=== PATIENT | male | born 1950 | race Caucasian/White ===

== ENCOUNTER → 2017-12-22 12:05 | Outpatient (CLI) | payer MEDICARE, OTHER, SELFPAY ==
[2017-12-22 15:57] LABS: ALB/GLOB Ratio 1.1 RATIO (0.9-2.4); AST(SGOT) 30 U/L (15-37); Alanine Aminotransfer ALT/SGPT 47 U/L (16-61); Albumin, Serum 4.1 g/dL (3.2-5.0); Alkaline Phosphatase 61 U/L (45-117); Anion Gap 9 (5-15); BUN 19 mg/dL (7-18); BUN/Creat Ratio 16.7 RATIO (10-20); Calcium,Total 9.7 mg/dL (8.5-10.1); Chloride 106 mmol/L (98-107); Creatinine, Serum 1.14 mg/dL (0.70-1.30); EST Glomerular Filtration Rate 69 mL/min (>60); Est Glom Filt Rate - Afr Amer 83 mL/min (>60); Globulin 3.7 g/dL (2.2-4.2); Glucose 116 mg/dL (74-106); Protein, Total 7.8 g/dL (6.4-8.2); Sodium Level 142 mmol/L (136-145); T4 Free Direct 1.08 ng/dL (0.76-1.46)
[2017-12-22 16:10] LABS: Microalbumin:Creatinine Ratio 14.5 mg/g CRE (<30 mg/g CRE)
== END ==
PROVIDERS: Family Provider Family Medicine; PCP Family Medicine; Visit Provider Family Medicine
DX: I10 Essential (primary) hypertension (principal); E11.9 Type 2 diabetes mellitus without complications; R05 Cough; E03.2 Hypothyroidism due to medicaments and other exogenous substances; Z51.81 Encounter for therapeutic drug level monitoring
CPT/HCPCS: 36415; 71046; 80053; 82043; 82570; 84439; 84443

== ENCOUNTER → 2018-05-01 13:07 | Outpatient (CLI) | payer MEDICARE, OTHER, SELFPAY ==
[2018-05-01 15:51] LABS: T3 Total - Triiodothyronine 0.82 ng/mL (0.6-1.81)
[2018-05-01 15:54] LABS: ALB/GLOB Ratio 1.1 RATIO (0.9-2.4); AST(SGOT) 35 U/L (15-37); Alanine Aminotransfer ALT/SGPT 72 U/L (16-61); Albumin, Serum 3.8 g/dL (3.2-5.0); Alkaline Phosphatase 66 U/L (45-117); Anion Gap 8 (5-15); BUN 14 mg/dL (7-18); BUN/Creat Ratio 14.3 RATIO (10-20); Calcium,Total 9.6 mg/dL (8.5-10.1); Chloride 104 mmol/L (98-107); Creatinine, Serum 0.98 mg/dL (0.70-1.30); EST Glomerular Filtration Rate 82 mL/min (>60); Est Glom Filt Rate - Afr Amer 99 mL/min (>60); Globulin 3.6 g/dL (2.2-4.2); Glucose 180 mg/dL (74-106); Potassium 4.2 mmol/L (3.5-5.1); Protein, Total 7.4 g/dL (6.4-8.2); Sodium Level 140 mmol/L (136-145); T4 Free Direct 1.02 ng/dL (0.76-1.46)
[2018-05-01 17:01] LABS: Absolute Lymphocyte Count 2.21 X10^3/ul (0.83-4.51); Absolute Neutrophil Count 5.4 X10^3/uL (2.0-7.7); Basophil# 0.09 X10^3/uL; Eosinophil# 0.21 X10^3/uL; Eosinophils% 2.3 % (0-5); Hematocrit 46.1 % (40-54); Hemoglobin 15.1 g/dl (13.0-16.5); Immature Platelet Fraction 9.4 % (1.0-7.9); Lymphocyte # 2.21 X10^3/ul (4.0); Lymphocyte % 24.3 % (19-41); Mean Corp Hgb Conc 32.8 g/gl (32-36); Mean Corpuscular Hgb 28.5 pg (27.0-32.0); Mean Platelet Vol. 13.2 fl (6.2-12.0); Monocyte# 1.17 X10^3/uL; Monocyte% 12.9 % (0-10); Neutrophil # 5.38 X10^3/uL (2.7-7.7); Neutrophil % 59.1 % (47-70); POSITIVE COUNT NO; POSITIVE DIFFERENTIAL NO; POSITIVE MORPHOLOGY NO; Platelet Count 188 K/mm3 (150-450); RBC Distribution Width CV 13.9 % (11.6-14.6); RBC Distribution Width SD 43.7 fl (35.1-43.9); RET-HE 30.5 pg (30-35); Reticulocyte Count 1.48 % (0.5-1.5); White Blood Count 9.1 K/mm3 (4.4-11.0)
== END ==
PROVIDERS: Family Provider Family Medicine; PCP Family Medicine; Visit Provider Family Medicine
DX: K92.1 Melena (principal); D64.9 Anemia, unspecified; E03.2 Hypothyroidism due to medicaments and other exogenous substances; K57.92 Diverticulitis of intestine, part unspecified, without perforation or abscess without bleeding
CPT/HCPCS: 36415; 80053; 84439; 84443; 84480; 85025; 85045

== ENCOUNTER → 2018-12-06 | Outpatient (CLI) | payer MEDICARE, OTHER, SELFPAY ==
[2018-05-02 10:35] VITALS: BMI 26.7
[2018-12-06 18:04] LABS: Free T3 2.6 pg/mL (2.18-3.98); T4 Free Direct 0.97 ng/dL (0.76-1.46)
== END | disposition home or self-care (01) ==
LOC: BFHLAB 16:34
PROVIDERS: Family Provider Family Medicine; PCP Family Medicine; Visit Provider Family Medicine
DX: E03.2 Hypothyroidism due to medicaments and other exogenous substances (principal)
CPT/HCPCS: 36415; 84439; 84443; 84481

== ENCOUNTER → 2019-04-10 08:11 | Outpatient (CLI) | payer MEDICARE, OTHER, SELFPAY ==
[2018-05-02 10:35] VITALS: BMI 26.7
[2019-04-10 15:14] LABS: Absolute Lymphocyte Count 1.97 X10^3/uL (0.83-4.51); Absolute Neutrophil Count 3.9 X10^3/uL (2.0-7.7); Basophil% 1.4 % (0-1); Eosinophil# 0.15 X10^3/uL; Eosinophils% 2.2 % (0-5); Hematocrit 49.6 % (40-54); Hemoglobin 15.9 g/dL (13.0-16.5); Lymphocyte # 1.97 X10^3/ul (4.0); Lymphocyte % 28.3 % (19-41); Mean Corp Hgb Conc 32.1 g/dL (32-36); Mean Corpuscular Hgb 28.5 pg (27.0-32.0); Mean Platelet Vol. 12.7 fl (6.2-12.0); Monocyte% 11.5 % (0-10); NRBC Flagged by Analyzer 0 % (0-5); Platelet Count 157 K/mm3 (150-450); RBC Distribution Width CV 12.8 % (11.6-14.6); RBC Distribution Width SD 41.7 fl (35.1-43.9); Red Blood Count 5.57 M/mm3 (4.6-6.2)
[2019-04-10 15:35] LABS: ALB/GLOB Ratio 1.1 RATIO (0.9-2.4); AST(SGOT) 26 U/L (15-37); Alanine Aminotransfer ALT/SGPT 60 U/L (16-61); Albumin, Serum 3.9 g/dL (3.2-5.0); Alkaline Phosphatase 58 U/L (45-117); Anion Gap 4 (5-15); BUN 16 mg/dL (7-18); Calcium,Total 9.5 mg/dL (8.5-10.1); Chloride 107 mmol/L (98-107); Cholesterol 149 mg/dL (200); Creatinine, Serum 1.07 mg/dL (0.70-1.30); EST Glomerular Filtration Rate 73 mL/min (>60); Est Glom Filt Rate - Afr Amer 89 mL/min (>60); Globulin 3.6 g/dL (2.2-4.2); Glucose 130 mg/dL (74-106); High Density Lipoprotein 41 mg/dL; Potassium 4.1 mmol/L (3.5-5.1); Protein, Total 7.5 g/dL (6.4-8.2); Sodium Level 139 mmol/L (136-145); Triglycerides 240 mg/dL; Very Low Density Lipoprotein 48 mg/dL (5-40)
[2019-04-10 16:52] LABS: Hemoglobin A1c 7.6 % (4.2-6.3)
== END ==
PROVIDERS: Family Provider Family Medicine; PCP Family Medicine; Visit Provider Family Medicine
DX: E78.5 Hyperlipidemia, unspecified (principal); E11.65 Type 2 diabetes mellitus with hyperglycemia; Z51.81 Encounter for therapeutic drug level monitoring
CPT/HCPCS: 36415; 80053; 80061; 83036; 85025

== ENCOUNTER → 2019-08-15 07:58 | Outpatient (CLI) | payer MEDICARE, OTHER, SELFPAY ==
[2019-05-01 07:39] VITALS: BMI 27.5
[2019-08-15 10:19] LABS: Insulin 17.2 mU/L (2.6-37.6)
[2019-08-15 10:34] LABS: Hemoglobin A1c 7.5 % (4.2-6.3)
[2019-08-15 11:01] LABS: BUN 16 mg/dL (7-18); Creatinine, Serum 0.99 mg/dL (0.70-1.30); Glucose 132 mg/dL (74-106)
[2019-08-15 11:02] LABS: AST(SGOT) 23 U/L (15-37); Alanine Aminotransfer ALT/SGPT 46 U/L (16-61); Alkaline Phosphatase 66 U/L (45-117); Anion Gap 7 (5-15); BUN/Creat Ratio 16.2 RATIO (10-20); Calcium,Total 9.9 mg/dL (8.5-10.1); Chloride 107 mmol/L (98-107); EST Glomerular Filtration Rate 81 mL/min (>60); Est Glom Filt Rate - Afr Amer 97 mL/min (>60); Sodium Level 141 mmol/L (136-145); Thyroid Stim Hormone (TSH) 0.44 uIU/mL (0.358-3.74)
[2019-08-17 01:22] LABS: C-Peptide 4.1 ng/mL (1.1-4.4)
== END ==
PROVIDERS: PCP Family Medicine; Referring Provider Family Medicine; Visit Provider Family Medicine
DX: I10 Essential (primary) hypertension (principal); E11.65 Type 2 diabetes mellitus with hyperglycemia; E03.9 Hypothyroidism, unspecified
CPT/HCPCS: 36415; 80053; 83036; 83525; 84443; 84681

== ENCOUNTER → 2020-05-01 09:56 | Outpatient (CLI) | payer MEDICARE, OTHER, SELFPAY ==
[2020-05-01 07:57] VITALS: BMI 28.1
[2020-05-01 13:14] LABS: AST(SGOT) 60 U/L (15-37); Alanine Aminotransfer ALT/SGPT 62 U/L (16-61); Albumin, Serum 3.8 g/dL (3.2-5.0); Alkaline Phosphatase 79 U/L (45-117); Bilirubin, Direct 0.14 mg/dL (0.00-0.30); Cholesterol 162 mg/dL (200); Globulin 4.1 g/dL (2.2-4.2); High Density Lipoprotein 38 mg/dL; Protein, Total 7.9 g/dL (6.4-8.2); Triglycerides 759 mg/dL
== END ==
PROVIDERS: PCP Family Medicine; Referring Provider Internal Medicine Cardiovascular Disease; Visit Provider Internal Medicine Cardiovascular Disease
DX: E78.00 Pure hypercholesterolemia, unspecified (principal)
CPT/HCPCS: 36415; 80061; 80076

== ENCOUNTER → 2020-05-15 06:44 | Outpatient (CLI) | payer MEDICARE, OTHER, SELFPAY ==
[2020-05-01 07:57] VITALS: BMI 28.1
--- NOTE | 2020-05-15 09:10 | STRESSREP ---
Stress Test Report Exercise myocardial perfusion stress test. 69-year-old man with a history of chest pain. Stress protocol: Resting EKG demonstrates sinus bradycardia with a rate of 50 bpm. Resting blood pressure is 140/80 mmHg. The patient exercised according to the regular Duong protocol for a total duration of 9 minutes and 30 seconds. The maximum heart rate was 142 bpm which was 92% of max impacted heart rate the maximum workload was 10.9 metabolic equivalents. At rest there were no ST or T wave changes noted to suggest ischemia at peak exercise upsloping ST changes only were noted with no criteria for ischemia. No clinical angina was noted the test was terminated due to shortness of breath. Myocardial perfusion protocol. 11.8 mCi of technetium 99m sestamibi was injected at rest. The patient exercised according to regular Duong protocol for 9 minutes and 30 seconds and at peak exercise 31.0 mCi of technetium 99m sestamibi was injected stress images were obtained stress and rest images were reconstructed and compared in the short axis vertical long horizontal long axis. Gated images were also obtained Perfusion SPECT analysis: Review of the stress images demonstrate normal uptake of tracer noted in all areas of the myocardium the rest images similar demonstrate normal uptake of tracer noted in all areas of myocardium. No areas of reversibility are noted suggest ischemia no previous infarct is noted. Gated SPECT analysis: The gated ejection fraction is 62%. Conclusion: Normal exercise myocardial perfusion stress test at a high workload. Preserved ejection fraction.
== END ==
PROVIDERS: PCP Family Medicine; Referring Provider Internal Medicine Cardiovascular Disease; Visit Provider Internal Medicine Cardiovascular Disease
DX: I25.10 Atherosclerotic heart disease of native coronary artery without angina pectoris (principal); Z95.5 Presence of coronary angioplasty implant and graft
CPT/HCPCS: 78452; 93017; A9500; A4216

== ENCOUNTER → 2020-07-17 09:23 | Outpatient (CLI) | payer MEDICARE, OTHER, SELFPAY ==
[2020-05-01 07:57] VITALS: BMI 28.1
--- NOTE | 2020-07-17 09:26 | RAD_ITS ---
STUDY: X-RAY CHEST REASON FOR EXAM: Male, 69 years old. cough TECHNIQUE: PA and lateral views of the chest. COMPARISON: 12/22/2017 FINDINGS: The lungs are clear and expanded. There is no demonstrated pleural abnormality. Normal size heart. Normal mediastinum and lindsey. Normal visualized pulmonary arteries. Normal visualized aortic arch and descending thoracic aorta. Normal visualized thoracic spine. Normal visualized ribs, clavicles, and shoulders. There is no demonstrated abnormality of the visualized soft tissue structures of the upper abdomen. RAD/Chest PA and Lateral IMPRESSION: Normal x-ray examination of the chest. Electronically Signed: Jonathon Barrientos MD at 17:06 EDT Tel , Service support ,
[2020-07-17 10:23] LABS: Absolute Lymphocyte Count 1.58 X10^3/uL (0.83-4.51); Absolute Neutrophil Count 4.9 X10^3/uL (2.0-7.7); Basophil# 0.08 X10^3/uL; Basophil% 1.1 % (0-1); Eosinophil# 0.18 X10^3/uL; Eosinophils% 2.4 % (0-5); Hemoglobin 16.2 g/dL (13.0-16.5); Lymphocyte # 1.58 X10^3/ul (4.0); Lymphocyte % 20.8 % (19-41); Mean Corp Hgb Conc 31.8 g/dL (32-36); Mean Corpuscular Hgb 28.1 pg (27.0-32.0); Mean Corpuscular Volume 88.5 fL (80-94); Mean Platelet Vol. 12.8 fl (6.2-12.0); Monocyte# 0.83 X10^3/uL; Monocyte% 10.9 % (0-10); NRBC Flagged by Analyzer 0 % (0-5); Neutrophil # 4.88 X10^3/uL (2.7-7.7); Neutrophil % 64.4 % (47-70); Platelet Count 158 K/mm3 (150-450); RBC Distribution Width CV 13.2 % (11.6-14.6); RBC Distribution Width SD 42.5 fl (35.1-43.9); Red Blood Count 5.76 M/mm3 (4.6-6.2); White Blood Count 7.6 K/mm3 (4.4-11.0)
[2020-07-17 11:10] LABS: AST(SGOT) 21 U/L (15-37); Alanine Aminotransfer ALT/SGPT 38 U/L (16-61); Albumin, Serum 4.3 g/dL (3.2-5.0); Alkaline Phosphatase 62 U/L (45-117); Anion Gap 6 (5-15); BUN 20 mg/dL (7-18); BUN/Creat Ratio 18.9 RATIO (10-20); Calcium,Total 10.1 mg/dL (8.5-10.1); Chloride 105 mmol/L (98-107); Cholesterol 165 mg/dL (200); Creatinine, Serum 1.06 mg/dL (0.70-1.30); EST Glomerular Filtration Rate 74 mL/min (>60); Est Glom Filt Rate - Afr Amer 89 mL/min (>60); Free T3 2.5 pg/mL (2.18-3.98); Globulin 4.1 g/dL (2.2-4.2); Glucose 134 mg/dL (74-106); High Density Lipoprotein 44 mg/dL; Protein, Total 8.4 g/dL (6.4-8.2); Sodium Level 137 mmol/L (136-145); T4 Free Direct 1.29 ng/dL (0.76-1.46); Thyroid Stim Hormone (TSH) 0.54 uIU/mL (0.358-3.74); Triglycerides 247 mg/dL; Very Low Density Lipoprotein 49 mg/dL (5-40)
[2020-07-18 20:33] LABS: C-Peptide 3.1 ng/mL (1.1-4.4)
== END ==
PROVIDERS: PCP Family Medicine; Referring Provider Family Medicine; Visit Provider Family Medicine
DX: R05 Cough (principal); E03.9 Hypothyroidism, unspecified; E11.65 Type 2 diabetes mellitus with hyperglycemia; E78.5 Hyperlipidemia, unspecified; Z51.81 Encounter for therapeutic drug level monitoring
CPT/HCPCS: 36415; 71046; 80053; 80061; 82043; 82570; 83525; 84439; 84443; 84481; 84681; 85025

== ENCOUNTER → 2022-03-16 | Outpatient (CLI) | payer MEDICARE, OTHER, SELFPAY ==
[2022-03-16 12:14] LABS: Absolute Lymphocyte Count 2.15 X10^3/uL (0.83-4.51); Absolute Neutrophil Count 3.3 X10^3/uL (2.0-7.7); Basophil# 0.08 X10^3/uL; Basophil% 1.2 % (0-1); Eosinophil# 0.17 X10^3/uL; Eosinophils% 2.6 % (0-5); Hematocrit 46.9 % (40-54); Hemoglobin 15.2 g/dL (13.0-16.5); Lymphocyte # 2.15 X10^3/ul (0.83-4.51); Mean Corp Hgb Conc 32.4 g/dL (32-36); Mean Corpuscular Hgb 28.3 pg (27.0-32.0); Mean Corpuscular Volume 87.3 fL (80-94); Mean Platelet Vol. 13.2 fl (6.2-12.0); Monocyte# 0.77 X10^3/uL; Monocyte% 11.8 % (0-10); NRBC Flagged by Analyzer 0 % (0-5); Neutrophil # 3.32 X10^3/uL (2.7-7.7); Neutrophil % 50.9 % (47-70); Platelet Count 143 K/mm3 (150-450); RBC Distribution Width CV 13.2 % (11.6-14.6); RBC Distribution Width SD 41.9 fl (35.1-43.9); Red Blood Count 5.37 M/mm3 (4.6-6.2); White Blood Count 6.5 K/mm3 (4.4-11.0)
[2022-03-16 12:44] LABS: AST(SGOT) 19 U/L (15-37); Alanine Aminotransfer ALT/SGPT 42 U/L (16-61); Albumin, Serum 3.7 g/dL (3.2-5.0); Alkaline Phosphatase 54 U/L (45-117); Anion Gap 5 (5-15); BUN 16 mg/dL (7-18); BUN/Creat Ratio 14.5 RATIO (10-20); Calcium,Total 9.7 mg/dL (8.5-10.1); Chloride 107 mmol/L (98-107); Cholesterol 154 mg/dL (200); EST Glomerular Filtration Rate 71 mL/min (>60); Est Glom Filt Rate - Afr Amer 85 mL/min (>60); Free T3 2.1 pg/mL (2.18-3.98); Globulin 3.6 g/dL (2.2-4.2); Glucose 160 mg/dL (74-106); High Density Lipoprotein 40 mg/dL; PSA,Total - Annual Screen 0.31 ng/mL (0.00-4.00); Potassium 4.2 mmol/L (3.5-5.1); Protein, Total 7.3 g/dL (6.4-8.2); Sodium Level 141 mmol/L (136-145); T4 Free Direct 0.85 ng/dL (0.76-1.46); Thyroid Stim Hormone (TSH) 0.59 uIU/mL (0.358-3.74); Triglycerides 294 mg/dL; Very Low Density Lipoprotein 59 mg/dL (5-40)
[2022-03-16 13:09] LABS: Hemoglobin A1c 9.6 % (3.8-5.6)
[2022-03-16 14:36] LABS: Microalbumin,Random Urine 48.9 mg/L (NO RANGE EST.); Microalbumin:Creatinine Ratio 42.5 mg/g CRE (<30 mg/g CRE)
== END | disposition home or self-care (01) ==
LOC: BFHLAB 08:31
PROVIDERS: PCP Family Medicine; Visit Provider Family Medicine
DX: E03.9 Hypothyroidism, unspecified (principal); E11.9 Type 2 diabetes mellitus without complications; E78.5 Hyperlipidemia, unspecified; Z51.81 Encounter for therapeutic drug level monitoring; Z12.5 Encounter for screening for malignant neoplasm of prostate
CPT/HCPCS: 36415; 80053; 80061; 82043; 82570; 83036; 84153; 84439; 84443; 84481; 85025; G0103

== ENCOUNTER → 2023-02-17 | Outpatient (CLI) | payer MEDICARE, OTHER, SELFPAY ==
[2023-02-17 13:07] LABS: Microalbumin,Random Urine 67.2 mg/L (NO RANGE EST.); Microalbumin:Creatinine Ratio 47.3 mg/g CRE (<30 mg/g CRE)
[2023-02-17 13:10] LABS: AST(SGOT) 29 U/L (15-37); Alanine Aminotransfer ALT/SGPT 59 U/L (16-61); Albumin, Serum 3.6 g/dL (3.2-5.0); Alkaline Phosphatase 61 U/L (45-117); Anion Gap 6 (5-15); BUN 13 mg/dL (7-18); BUN/Creat Ratio 12.9 RATIO (10-20); Calcium,Total 9.6 mg/dL (8.5-10.1); Chloride 107 mmol/L (98-107); Cholesterol 130 mg/dL (200); Creatinine, Serum 1.01 mg/dL (0.70-1.30); EST Glomerular Filtration Rate 78 mL/min (>60); Est Glom Filt Rate - Afr Amer 94 mL/min (>60); Free T3 2.7 pg/mL (2.18-3.98); Globulin 3.7 g/dL (2.2-4.2); Glucose 123 mg/dL (74-106); High Density Lipoprotein 42 mg/dL; PSA,Total - Annual Screen 0.39 ng/mL (0.00-4.00); Potassium 4.1 mmol/L (3.5-5.1); Protein, Total 7.3 g/dL (6.4-8.2); Sodium Level 140 mmol/L (136-145); T4 Free Direct 1.16 ng/dL (0.76-1.46); Thyroid Stim Hormone (TSH) 0.23 uIU/mL (0.358-3.74); Triglycerides 241 mg/dL; Very Low Density Lipoprotein 48 mg/dL (5-40)
== END | disposition home or self-care (01) ==
LOC: BFHLAB 09:18
PROVIDERS: PCP Family Medicine; Referring Provider Family Medicine; Visit Provider Family Medicine
DX: E03.9 Hypothyroidism, unspecified (principal); E11.9 Type 2 diabetes mellitus without complications; E78.5 Hyperlipidemia, unspecified; I25.10 Atherosclerotic heart disease of native coronary artery without angina pectoris; Z12.5 Encounter for screening for malignant neoplasm of prostate
CPT/HCPCS: 36415; 80053; 80061; 82043; 82570; 84153; 84439; 84443; 84481; G0103

== ENCOUNTER → 2023-05-19 | Outpatient (CLI) | payer MEDICARE, OTHER, SELFPAY ==
--- OUTSIDE RECORDS SUMMARY | 2023-05-19 09:41 | XMS RPT_ITS | CCD ---
Author Name Unknown Address [address] [place] [address] Organization [facility] Care Team Providers Care Global Marketing Specialist Name Role Phone Erick Ron Unavailable Unavailable MD Shantanu, Tavares Bowles Unavailable Luis LAINEZ, Corrine Guillaume Unavailable [phone] NING Mcadams, Corrine Walters Unavailable Erick Ron Unavailable Unavailable CINDI, MARCO ANTONIO Unavailable Unavailable MALYS, TERI A. Unavailable Unavailable ELIUD COY (PA) Attending Unavailable TERI CARCAMO A Referring Unavailable DILIP, DURGA T Admitting Unavailable DILIP, DURGA Mendoza Attending Unavailable ELIUD COY (PA) Referring Unavailable DILIP, DURGA Reji Attending Unavailable TERI CARCAMO A Referring Unavailable DILIP, DURGA T Referring Unavailable DILIP, DURGA T Referring Unavailable DILIP, DURGA T Referring Unavailable DILIP, DURGA T Admitting Unavailable DILIP, DURGA Mendoza Attending Unavailable DILIP, DURGA T Referring Unavailable MITCH GORDON Attending Unavail able DILIP, DURGA T Attending Unavailable KEENANYS, TERI A Referring Unavailable Erick Ron Unavailable Unavailable Allergies Allergy Classification Reported Allergen(s) Allergy Type Date of Onset Reaction(s) Facility (19 sources) metFORMIN / SITagliptin drug allergy 09-07-2012 Abdominal pain, None [facility] Work Phone: Medications Completed/Discontinued Medications Medication Drug Class(es) Dates Sig (Normalized) Sig (Original) amoxicillin 500 mg oral tablet (7 sources) Penicillin-class Antibacterial Start: 11-22-2009 End: 12-02-2009 AMOXIL 500 MG CAPS three times a day AMOXICILLIN [id number] Corrina Tolentino CLOTH [employer]AYER Problems Active Problems Problem Classification Problem Date Documented Da te Episodic/Chronic Abdominal pain (16 sources) Right upper quadrant pain; Translations: [Unspecified abdominal pain] Onset: 05-13-2015 Resolved: 09-24-2015 05-13-2015 Episodic Cardiac and circulatory congenital anomalies (1 source) 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; Translations: [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] Onset: 05-30-2018 Chronic Coronary atherosclerosis and other heart disease (20 sources) Coronary arteriosclerosis; Translations: [Coronary atherosclerosis] Onset: 07-02-2010 Resolved: 03-09-2016 07-02-2010 Chronic Diabetes mellitus with complications (20 sources) Type II diabetes mellitus uncontrolled; Translations: [Peripheral circulatory disorder associated with type 2 diabetes mellitus] Onset: 07-02-2010 Resolved: 09-24-2015 09-24-2015 Chronic Diabetes mellitus without complication (20 sources) Type 2 diabetes mellitus; Translations: [Type 2 diabetes mellitus without complications] Onset: 09-24-2015 Resolved: 06-14-2015 09-24-2015 Chronic Disorders of lipid metabolism (7 sources) Hyperlipidemia; Translations: [Hyperlipidemia, unspecified] 11-22-2009 Chronic Essential hypertension (7 sources) Hypertensive disorder; Translations: [Essential (primary) hypertension] 11-22-2009 Chronic Other screening for suspected conditions (not mental disorders or infectious disease) (2 sources) Encounter for screening for other disorder; Translations: [Encounter for screening for malignant neoplasm of colon] Onset: 01-16-2018 Episodic Thyroid disorders (7 sources) Iatrogenic hypothyroidism; Translations: [Hypothyroidism due to medicaments and other exogenous substances] Onset: 07-02-2010 07-02-2010 Chronic Unclassified (1 source) Long-term drug therapy; Translations: [Other mcc (current) drug therapy] Onset: 07-02-2010 07-02-2010 Past or Other Problems Problem Classification Problem Date Documented Da te Episodic/Chronic Cardiac dysrhythmias (14 sources) Palpitations; Translations: [Palpitations] Onset: 07-02-2010 Resolved: 03-09-2016 07-02-2010 Episodic Coronary atherosclerosis and other heart disease (20 sources) Coronary angioplasty status; Translations: [Presence of coronary angioplasty implant and graft] Onset: 07-02-2010 Resolved: 03-09-2016 07-02-2010 Episodic Other aftercare (6 sources) Other roasterman (current) drug therapy; Translations: [Other mcc (current) drug therapy] Onset: 07-02-2010 07-02-2010 Episodic Other nutritional; endocrine; and metabolic disorders (13 sources) Body mass index (BMI) 26.0-26.9, adult; Translations: [Body mass index (BMI) 29.0-29.9, adult] Onset: 09-10-2014 10-29-2015 Episodic Other nutritional; endocrine; and metabolic disorders (1 source) Body mass index (BMI) 29.0-29.9, adult; Translations: [Body mass index (BMI) 29.0-29.9, adult] Onset: 09-10-2014 09-10-2014 Episodic Other upper respiratory infections (7 sources) Upper respiratory infection; Translations: [Acute upper respiratory infection, unspecified] Onset: 11-22-2009 Resolved: 12-13-2009 11-22-2009 Episodic Unclassified (7 sources) Family history of ischemic heart disease and other diseases of the circulatory system; Translations: [Family history of ischemic heart disease and other diseases of the circulatory system] 09-10-2014 Episodic Unclassified (14 sources) Procedure needed; Translations: [Encounter for immunization] Onset: 05-13-2015 Resolved: 09-24-2015 05-13-2015 Results Test Name Value Interpretation Reference Range Facil ity Vital Signs Date Time Vital Sign Value Performing Clinician Rosendo fernandes 03-09-2016 15:35-0500 BMI (Body Mass Index) 26.15 kg/m2 [facility] Work Phone: 03-09-2016 15:35-0500 BP Diastolic 64 mm[Hg] [facility] Work Phone: 03-09-2016 15:35-0500 BP Systolic 100 mm[Hg] [facility] Work Phone: 03-09-2016 15:35-0500 BSA (Body Surface Area) 1.92 m2 [facility] Work Phone: 03-09-2016 15:35-0500 Pulse (Heart Rate) 52 /min [facility] Work Phone: 03-09-2016 15:35-0500 Respiratory Rate 20 /min Harumi DeFinis [facility] Work Phone: 03-09-2016 15:35-0500 Weight 78.02 kg Harumi DeFinis [facility] Work Phone: 09-24-2015 12:54-0400 Body Temperature 97.4 [degF] Harumi DeFinis [facility] Work Phone: 09-24-2015 12:54-0400 Pulse Oximetry 98 % Harumi DeFinis [facility] Work Phone: 12-25-2013 15:23-0400 Heart rate 51 /min Harumi DeFinis [facility] Work Phone: 03-02-2012 16:30-0500 Heart rate 418 ms [facility] [employer] [facility] Work Phone: 08-26-2011 16:26-0400 Height 172.72 cm Harumi DeFinis [facility] Work Phone: Encounters Encounter Date Encounter Type Care Provider Facility Start: 06-01-2018 End: 06-01-2018 Patient encounter procedure DURGA CHERRY [facility] Start: 05-30-2018 End: 05-31-2018 Patient encounter procedure MITCH GORDON [facility] Start: 05-23-2018 End: 05-23-2018 Patient encounter procedure DURGA CHERRY [facility] Start: 05-10-2018 End: 05-17-2018 Patient encounter procedure DURGA CHERRY [facility] Start: 05-05-2018 End: 05-08-2018 Patient encounter procedure DURGA CHERRY [facility] Start: 02-14-2018 End: 02-14-2018 Patient encounter procedure DURGA CHERRY [facility] Start: 01-16-2018 End: 01-17-2018 Patient encounter procedure ELIUD CYO (PA) [facility] Start: 11-14-2017 End: 11-15-2017 Patient encounter [facility] Facility[facility] Date Procedure Procedure Detail Performing Clinician Start: 08-06-2016 End: 10-08-2016 *Hepatic Function Panel Corrine hylton PA-C Work Phone: Start: 08-06-2016 End: 10-08-2016 Lipid panel [AGGREGATE] Corrine hylton PA-C Work Phone: Start: 03-09-2016 End: 03-09-2016 Follow Up Appt 1 year Tavares Fournier MD Start: 03-09-2016 End: 03-09-2016 MM Tavares Fournier MD Start: 01-24-2016 End: 02-09-2016 *Hepatic Function Panel Corrine hylton PA-C Work Phone: Start: 01-24-2016 End: 02-09-2016 Lipid panel [AGGREGATE] Corrine hylton PA-C Work Phone: Start: 10-29-2015 End: 10-29-2015 Dietary management education, guidance, and counseling Erick Ron Start: 10-29-2015 End: 10-29-2015 [employer] Corrine Mcadams PA-C Work Phone: Start: 10-29-2015 End: 10-29-2015 Follow Up Appt 6 months Corrine hylton PA-C Work Phone: Start: 09-24-2015 End: 09-24-2015 HbA1c Suleman Nur DO Work Phone: Start: 09-24-2015 End: 09-24-2015 Hemoglobin glycosylated a1c Suleman Nur DO Work Phone: Start: 05-13-2015 End: 10-14-2015 Echo exam of abdomen Teri Carcamo, DO Work Phone: Start: 05-13-2015 End: 06-14-2015 HbA1c Teri A Dona, DO Work Phone: Start: 05-13-2015 End: 06-14-2015 Hemoglobin glycosylated a1c Teri A Dona, DO Work Phone: Start: 05-06-2015 End: 10-14-2015 Follow Up Appt 6 months Selena Valverde Start: 05-06-2015 End: 10-14-2015 JOHN Fournier MD Start: 04-01-2015 End: 06-09-2015 Thyroid stimulating hormone (TSH) Teridon Carcamo, DO Work Phone: Start: 04-01-2015 End: 06-14-2015 Thyroxine (T4) free Teri Carcamo, DO Work Phone: Start: 01-07-2015 End: 03-31-2015 *CMP Complete Metabolic Panel Teri Carcamo, DO Work Phone: Start: 01-07-2015 End: 04-01-2015 Lipid panel [AGGREGATE] Teri Carcamo, DO Work Phone: Start: 01-07-2015 End: 03-31-2015 Thyroid stimulating hormone (TSH) Teri Carcamo, DO Work Phone: Start: 01-07-2015 End: 03-31-2015 Thyroxine (T4) free Teri Carcamo, DO Work Phone: Start: 09-10-2014 End: 09-10-2014 [employer] Corrine Mcadams PA-C Work Phone: Start: 09-10-2014 End: 09-11-2014 Documentation of current medications Corrine Mcadams PA-C Work Phone: Start: 09-10-2014 End: 09-10-2014 Follow Up Appt 6 months Corrine hylton PA-C Work Phone: Start: 09-10-2014 End: 09-10-2014 Follow Up Appt Other Corrine guillaume PA-C Work Phone: Start: 09-10-2014 End: 09-11-2014 Pedal pulse taking Corrine Mcadams PA-C Work Phone: Start: 03-12-2014 End: 04-02-2014 *Hepatic Function Panel Selena Valverde Start: 03-12-2014 End: 03-12-2014 Follow Up Appt 6 months Selena Valverde Start: 03-12-2014 End: 04-02-2014 Lipid panel [AGGREGATE] Selena Valverde Start: 03-12-2014 End: 03-12-2014 MMSelena Fournier MD Start: 12-25-2013 End: 12-26-2013 *BMP Tavares Fournier MD Start: 12-25-2013 End: 12-26-2013 CBC W Auto Differential panel - Blood Tavares Fournier MD Start: 12-25-2013 End: 01-03-2014 Chest x-ray Tavares Fournier MD Start: 12-25-2013 End: 12-26-2013 Coagulation factor induced.INR assay in platelet poor plasma Tavares Fournier MD Start: 12-25-2013 End: 12-26-2013 Electrocardiogram, complete Tavares Fournier MD Start: 12-25-2013 End: 03-12-2014 Follow Up Appt 3 months Selena Valverde Start: 12-25-2013 End: 01-03-2014 Left Heart Cath Tavares Fournier MD Start: 12-25-2013 End: 12-26-2013 Lipid panel [AGGREGATE] Selena Valverde Start: 12-25-2013 End: 03-12-2014 MMSelena Fournier MD Start: 03-12-2013 End: 03-12-2013 [employer] Corrine Mcadams PA-C Work Phone: Start: 03-12-2013 End: 03-12-2013 Follow Up Appt 1 year Corrine stanley PA-C Work Phone: Start: 03-12-2013 End: 03-12-2013 Follow Up Appt Other Corrine guillaume PA-C Work Phone: Start: 02-23-2013 End: 01-03-2014 *Hepatic Function Panel Selena Valverde Start: 02-23-2013 End: 01-03-2014 Lipid panel [AGGREGATE] Selena Valverde Start: 09-07-2012 End: 03-07-2013 *Hepatic Function Panel Selena Valverde Start: 09-07-2012 End: 09-07-2012 Follow Up Appt 6 months Selena Valverde Start: 09-07-2012 End: 03-07-2013 Lipid panel [AGGREGATE] Selena Valverde Start: 09-07-2012 End: 09-07-2012 MMM Tavares Fournier MD Start: 09-06-2012 End: 03-07-2013 *Hepatic Function Panel Delfino hoff MD Start: 09-06-2012 End: 03-07-2013 Lipid panel [AGGREGATE] Delfino hoff MD Start: 03-02-2012 End: 03-02-2012 Follow Up Appt 6 months Delfino hoff MD Start: 03-01-2012 End: 03-02-2012 *Hepatic Function Panel Delfino hoff MD Start: 03-01-2012 End: 03-02-2012 Lipid panel [AGGREGATE] Delfnio hoff MD Start: 08-26-2011 End: 08-26-2011 Follow Up Appt 6 months Delfino hoff MD Plan of Treatment Date Care Activity Detail Author Start: 03-10-2017 End: 03-10-2017 Appointment Appointment [facility] Work Phone: Start: 01-07-2017 End: 10-08-2016 *Hepatic Function Panel *Hepatic Function Panel [facility] Work Phone: Start: 01-07-2017 End: 10-08-2016 Lipid panel [AGGREGATE] *Lipid Profile CC PCP [facility] Work Phone: Start: 08-06-2016 End: 10-08-2016 *Hepatic Function Panel *Hepatic Function Panel [facility] Work Phone: Start: 08-06-2016 End: 10-08-2016 Lipid panel [AGGREGATE] *Lipid Profile CC PCP [facility] Work Phone: Start: 03-09-2016 End: 03-09-2016 *Hepatic Function Panel *Hepatic Function Panel [facility] Work Phone: Start: 03-09-2016 End: 03-09-2016 Follow Up Appt 1 year Follow Up Appt 1 year [facility] Work Phone: Start: 03-09-2016 End: 03-09-2016 Lipid panel [AGGREGATE] *Lipid Profile CC PCP [facility] Work Phone: Start: 03-09-2016 End: 03-09-2016 MMM MMM [facility] Work Phone: Start: 01-24-2016 End: 02-09-2016 *Hepatic Function Panel *Hepatic Function Panel [facility] Work Phone: Start: 01-24-2016 End: 02-09-2016 Lipid panel [AGGREGATE] *Lipid Profile CC PCP [facility] Work Phone: Start: 10-29-2015 End: 10-29-2015 [employer] [facility] Work Phone: Start: 10-29-2015 End: 10-29-2015 Follow Up Appt 6 months Follow Up Appt 6 months [facility] Work Phone: Start: 05-13-2015 End: 10-14-2015 Echo exam of abdomen US Abdomen, limited [facility] Work Phone: Start: 05-06-2015 End: 10-14-2015 Follow Up Appt 6 months Follow Up Appt 6 months [facility] Work Phone: Start: 05-06-2015 End: 10-14-2015 MMM MMM [facility] Work Phone: Start: 04-01-2015 End: 06-09-2015 Thyroid stimulating hormone (TSH) *TSH [facility] Work Phone: Start: 04-01-2015 End: 06-14-2015 Thyroxine (T4) free *T4 free [facility] Work Phone: Start: 01-07-2015 End: 03-31-2015 *CMP Complete Metabolic Panel *CMP Complete Metabolic Panel [facility] Work Phone: Start: 01-07-2015 End: 04-01-2015 Lipid panel [AGGREGATE] *Lipid Profile [facility] Work Phone: Start: 01-07-2015 End: 03-31-2015 Thyroid stimulating hormone (TSH) *TSH [facility] Work Phone: Start: 09-10-2014 End: 09-10-2014 [employer] SAL[employer] [facility] Work Phone: Start: 09-10-2014 End: 09-10-2014 Follow Up Appt 6 months Follow Up Appt 6 months [facility] Work Phone: Start: 09-10-2014 End: 09-10-2014 Follow Up Appt Other Follow Up Appt Other [facility] Work Phone: Start: 03-12-2014 End: 04-02-2014 *Hepatic Function Panel *Hepatic Function Panel [facility] Work Phone: Start: 03-12-2014 End: 03-12-2014 Follow Up Appt 6 months Follow Up Appt 6 months [facility] Work Phone: Start: 03-12-2014 End: 04-02-2014 Lipid panel [AGGREGATE] *Lipid Profile CC PCP [facility] Work Phone: Start: 03-12-2014 End: 03-12-2014 MMM MMM [facility] Work Phone: Start: 12-25-2013 End: 12-26-2013 *BMP *BMP [facility] Work Phone: Start: 12-25-2013 End: 12-26-2013 CBC W Auto Differential panel - Blood *CBC without Diff [facility] Work Phone: Start: 12-25-2013 End: 01-03-2014 Chest x-ray X-Ray, Chest, PA & Lateral [facility] Work Phone: Start: 12-25-2013 End: 12-26-2013 Coagulation factor induced.INR assay in platelet poor plasma *PT/INR [facility] Work Phone: Start: 12-25-2013 End: 12-26-2013 Electrocardiogram, complete EKG (In office) [facility] Work Phone: Start: 12-25-2013 End: 03-12-2014 Follow Up Appt 3 months Follow Up Appt 3 months [facility] Work Phone: Start: 12-25-2013 End: 12-25-2013 Left Heart Cath Left Heart Cath [facility] Work Phone: Start: 12-25-2013 End: 03-12-2014 MMM MMM [facility] Work Phone: Start: 03-12-2013 End: 03-12-2013 [employer] SALES [employer] [facility] Work Phone: Start: 03-12-2013 End: 03-12-2013 Follow Up Appt 1 year Follow Up Appt 1 year [facility] Work Phone: Start: 03-12-2013 End: 03-12-2013 Follow Up Appt Other Follow Up Appt Other [facility] Work Phone: Start: 02-23-2013 End: 01-03-2014 *Hepatic Function Panel *Hepatic Function Panel [facility] Work Phone: Start: 02-23-2013 End: 01-03-2014 Lipid panel [AGGREGATE] *Lipid Profile [facility] Work Phone: Start: 09-07-2012 End: 03-07-2013 *Hepatic Function Panel *Hepatic Function Panel [facility] Work Phone: Start: 09-07-2012 End: 09-07-2012 Follow Up Appt 6 months Follow Up Appt 6 months [facility] Work Phone: Start: 09-07-2012 End: 03-07-2013 Lipid panel [AGGREGATE] *Lipid Profile [facility] Work Phone: Start: 09-07-2012 End: 09-07-2012 MMM MMM [facility] Work Phone: Start: 09-06-2012 End: 03-07-2013 *Hepatic Function Panel *Hepatic Function Panel [facility] Work Phone: Start: 09-06-2012 End: 03-07-2013 Lipid panel [AGGREGATE] *Lipid Profile [facility] Work Phone: Start: 03-02-2012 End: 03-02-2012 Follow Up Appt 6 months Follow Up Appt 6 months [facility] Work Phone: Start: 03-01-2012 End: 03-02-2012 *Hepatic Function Panel *Hepatic Function Panel [facility] Work Phone: Start: 03-01-2012 End: 03-02-2012 Lipid panel [AGGREGATE] *Lipid Profile [facility] Work Phone: Start: 08-26-2011 End: 08-26-2011 Follow Up Appt 6 months Follow Up Appt 6 months [facility] Work Phone: Patient Education [facility] Work Phone: Immunizations Immunization Date Immunization Notes Care Provider Arianna francisco 05-13-2015 diphtheria, tetanus toxoids and acellular pertussis vaccine, unspecified formulation [facility] Work Phone: 05-13-2015 [id number] [facility] Work Phone: 05-13-2015 [id number] [facility] Work Phone: 05-06-2015 [id number]; Translati ons: [MMM] [facility] Work Phone: Payers Date Payer Category Payer Medicare [id number] Medical Equipment Procedure Code Equipment Code Equipment Origin al Text Equipment Identifier Dates LANCETS FREESTYLE LANCET S MISC [id number] Start: 05-13-2015 LANCETS FREESTYLE LANCET S MISC [id number] Start: 05-13-2015 Summary Purpose Family History No Family History Records FoundNo Family History Records Found Advance Directives No Advanced Directives Records FoundNo Advanced Directives Records Found Additional Source Comments (unrecognized sect ion and content) No Status Records FoundNo Status Records Found INFORMATION SOURCE (unrecogn ized section and content) DATE CREATED AUTHOR AUTHOR'S ORGANIZ ATION 06/13/2018 [facility] FOR RECORDS PERTAINING TO PATIENTS WHO ARE OR HAVE BEEN ENROLLED IN A CHEMICAL DEPENDENCY/SUBSTANCEABUSE PROGRAM, SOME INFORMATION MAY BE OMITTED. This clinical summary was aggregated from multiple sources. Caution should be exercised in using it in the provision of clinical care. This summary normalizes information from multiple sources, and as a consequence, information in this document may materially change the coding, format and clinical context of patient data. In addition, data may be omitted in some cases. CLINICAL DECISIONS SHOULD BE BASED ON THE PRIMARY CLINICAL RECORDS. [facility] [employer] [facility]. provides no warranty or guarantee of the accuracy or completeness of information in this document.
[2023-05-19 12:42] LABS: Absolute Neutrophil Count 3.1 X10^3/uL (2.0-7.7); Basophil# 0.12 X10^3/uL; Basophil% 1.9 % (0-1); Eosinophil# 0.25 X10^3/uL; Hematocrit 45.2 % (40-54); Hemoglobin 14.3 g/dL (13.0-16.5); Lymphocyte % 30.1 % (19-41); Mean Corp Hgb Conc 31.6 g/dL (32-36); Mean Corpuscular Hgb 27.7 pg (27.0-32.0); Mean Corpuscular Volume 87.6 fL (80-94); Mean Platelet Vol. 12.5 fl (6.2-12.0); Monocyte% 14.2 % (0-10); NRBC Flagged by Analyzer 0 % (0-5); Neutrophil # 3.12 X10^3/uL (2.7-7.7); Neutrophil % 49.3 % (47-70); Platelet Count 162 K/mm3 (150-450); RBC Distribution Width CV 14.1 % (11.6-14.6); RBC Distribution Width SD 45.3 fl (35.1-43.9); Red Blood Count 5.16 M/mm3 (4.6-6.2); White Blood Count 6.3 K/mm3 (4.4-11.0)
[2023-05-19 13:14] LABS: Vitamin B12 1150 pg/mL (211-911); Vitamin D,25 Hydroxy 50.9 ng/mL
[2023-05-19 13:47] LABS: Free T3 2.5 pg/mL (2.18-3.98); Iron 114 ug/dL (65-175); Magnesium 2.1 mg/dL (1.6-2.6); T4 Free Direct 1.14 ng/dL (0.76-1.46); Thyroid Stim Hormone (TSH) 0.87 uIU/mL (0.358-3.74)
== END | disposition home or self-care (01) ==
LOC: BFHLAB 09:13
PROVIDERS: PCP Family Medicine; Visit Provider Family Medicine
DX: E03.9 Hypothyroidism, unspecified (principal); E11.9 Type 2 diabetes mellitus without complications; D64.9 Anemia, unspecified; E55.9 Vitamin D deficiency, unspecified; Z51.81 Encounter for therapeutic drug level monitoring
CPT/HCPCS: 36415; 82306; 82607; 83540; 83735; 84439; 84443; 84481; 85025

== ENCOUNTER → 2024-01-09 | Outpatient (CLI) | payer MEDICARE, OTHER, SELFPAY ==
[2024-01-09 12:36] LABS: Absolute Lymphocyte Count 1.94 X10^3/uL (0.83-4.51); Absolute Neutrophil Count 3.8 X10^3/uL (2.0-7.7); Basophil# 0.08 X10^3/uL; Basophil% 1.2 % (0-1); Eosinophil# 0.23 X10^3/uL; Eosinophils% 3.3 % (0-5); Hematocrit 46.3 % (40-54); Lymphocyte # 1.94 X10^3/ul (0.83-4.51); Lymphocyte % 28.1 % (19-41); Mean Corp Hgb Conc 32.4 g/dL (32-36); Mean Corpuscular Hgb 28.4 pg (27.0-32.0); Mean Corpuscular Volume 87.7 fL (80-94); Mean Platelet Vol. 12.6 fl (6.2-12.0); Monocyte# 0.85 X10^3/uL; Monocyte% 12.3 % (0-10); NRBC Flagged by Analyzer 0 % (0-5); Neutrophil # 3.75 X10^3/uL (2.7-7.7); Neutrophil % 54.4 % (47-70); Platelet Count 141 K/mm3 (150-450); RBC Distribution Width SD 41.7 fl (35.1-43.9); Red Blood Count 5.28 M/mm3 (4.6-6.2); White Blood Count 6.9 K/mm3 (4.4-11.0)
[2024-01-09 12:49] LABS: Microalbumin,Random Urine 80.5 mg/L (NO RANGE EST.); Microalbumin:Creatinine Ratio 67.1 mg/g CRE (<30 mg/g CRE)
[2024-01-09 13:42] LABS: ALB/GLOB Ratio 1.1 RATIO (0.9-2.4); AST(SGOT) 20 U/L (15-37); Alanine Aminotransfer ALT/SGPT 36 U/L (16-61); Albumin, Serum 3.7 g/dL (3.2-5.0); Alkaline Phosphatase 68 U/L (45-117); Anion Gap 7 (5-15); BUN 15 mg/dL (7-18); BUN/Creat Ratio 12.6 RATIO (10-20); Calcium,Total 9.8 mg/dL (8.5-10.1); Chloride 108 mmol/L (98-107); Cholesterol 150 mg/dL (200); Creatinine, Serum 1.19 mg/dL (0.70-1.30); EST Glomerular Filtration Rate 64 mL/min (>60); Est Glom Filt Rate - Afr Amer 78 mL/min (>60); Globulin 3.5 g/dL (2.2-4.2); Glucose 153 mg/dL (74-106); High Density Lipoprotein 38 mg/dL; Protein, Total 7.2 g/dL (6.4-8.2); Sodium Level 140 mmol/L (136-145); T4 Free Direct 0.88 ng/dL (0.76-1.46); Triglycerides 309 mg/dL; Very Low Density Lipoprotein 62 mg/dL (5-40)
== END | disposition home or self-care (01) ==
PROVIDERS: PCP Family Medicine; Referring Provider Family Medicine; Visit Provider Family Medicine
DX: E03.9 Hypothyroidism, unspecified (principal); E11.65 Type 2 diabetes mellitus with hyperglycemia; I10 Essential (primary) hypertension; Z12.5 Encounter for screening for malignant neoplasm of prostate; E78.5 Hyperlipidemia, unspecified
CPT/HCPCS: 36415; 80053; 80061; 82043; 82570; 84153; 84439; 84443; 84481; 85025; G0103

== ENCOUNTER → 2024-04-11 | Outpatient (CLI) | payer MEDICARE, OTHER, SELFPAY ==
[2024-04-11 12:45] LABS: ALB/GLOB Ratio 0.9 RATIO (0.9-2.4); AST(SGOT) 27 U/L (15-37); Alanine Aminotransfer ALT/SGPT 44 U/L (16-61); Albumin, Serum 3.6 g/dL (3.2-5.0); Alkaline Phosphatase 72 U/L (45-117); Anion Gap 4 (5-15); BUN 13 mg/dL (7-18); Calcium,Total 9.9 mg/dL (8.5-10.1); Chloride 109 mmol/L (98-107); Cholesterol 157 mg/dL (200); EST Glomerular Filtration Rate 79 mL/min (>60); Est Glom Filt Rate - Afr Amer 95 mL/min (>60); Free T3 2.5 pg/mL (2.18-3.98); Globulin 3.9 g/dL (2.2-4.2); Glucose 142 mg/dL (74-106); High Density Lipoprotein 45 mg/dL; Potassium 4.1 mmol/L (3.5-5.1); Protein, Total 7.5 g/dL (6.4-8.2); Sodium Level 140 mmol/L (136-145); T4 Free Direct 1.23 ng/dL (0.76-1.46); Thyroid Stim Hormone (TSH) 0.395 uIU/mL (0.358-3.740); Triglycerides 335 mg/dL; Very Low Density Lipoprotein 67 mg/dL (5-40)
== END | disposition home or self-care (01) ==
LOC: MTLAB 09:50
PROVIDERS: PCP Family Medicine; Referring Provider Family Medicine; Visit Provider Family Medicine
DX: E03.9 Hypothyroidism, unspecified (principal); E11.65 Type 2 diabetes mellitus with hyperglycemia; E78.5 Hyperlipidemia, unspecified; Z51.81 Encounter for therapeutic drug level monitoring
CPT/HCPCS: 36415; 80053; 80061; 84439; 84443; 84481

== ENCOUNTER → 2024-05-08 | Outpatient (CLI) | payer MEDICARE, OTHER, SELFPAY ==
--- NOTE | 2024-05-08 17:31 | STRESSREP ---
Stress Test Report Pharmacologic myocardial perfusion stress test. 73-year-old man with a history of coronary artery disease Resting EKG demonstrates sinus rhythm with a rate of 60 bpm. Resting blood pressure is 142/82 mmHg. 0.4 mg of regadenoson was infused per usual protocol followed by rapid intravenous saline flush injection. Continuous EKG monitoring was performed. The maximum heart rate was 91 bpm which was 61% of max impacted heart rate the maximum workload was 1 metabolic equivalent. At rest there were no ST or T wave changes noted to suggest ischemia and at peak infusion nonspecific ST changes were noted which did not meet the criteria for ischemia. No clinical angina is noted. The final blood pressure was 142/78 mmHg. Myocardial perfusion protocol. 11.9 mCi of technetium 99m sestamibi was injected at rest. 0.4 mg of regadenoson was infused per usual protocol. At peak infusion 33.7 mCi of technetium 99m sestamibi was injected stress images were obtained stress and rest images were reconstructed and compared in the short axis vertical long and horizontal long axis. Gated images were also obtained. Perfusion SPECT analysis: Review of the stress images demonstrate normal uptake of tracer noted in all areas of the myocardium. The resting images similar demonstrated normal uptake of tracer noted in all areas of the myocardium. No areas of reversibility are noted to suggest ischemia and no previous infarct is noted. Gated SPECT analysis: The gated ejection fraction is 69%. Conclusion: Normal pharmacologic myocardial perfusion stress test. Preserved ejection fraction.
== END | disposition home or self-care (01) ==
PROVIDERS: PCP Family Medicine; Referring Provider Internal Medicine Cardiovascular Disease; Visit Provider Internal Medicine Cardiovascular Disease
DX: I25.10 Atherosclerotic heart disease of native coronary artery without angina pectoris (principal); Z95.5 Presence of coronary angioplasty implant and graft
CPT/HCPCS: 78452; 93017; A9500; A4216; J2785

== ENCOUNTER → 2024-06-04 | Outpatient (CLI) | payer MEDICARE, OTHER, SELFPAY | END | disposition home or self-care (01) | LOC: LAB 13:45 | PROVIDERS: PCP Family Medicine; Referring Provider Nurse Practitioner; Visit Provider Nurse Practitioner | DX: Z12.5 Encounter for screening for malignant neoplasm of prostate (principal) | CPT/HCPCS: 36415; 84153; G0103 ==

== ENCOUNTER → 2025-02-11 | Outpatient (CLI) | payer MEDICARE, SELFPAY ==
[2025-02-11 13:13] LABS: AST(SGOT) 40 U/L (<=37); Alanine Aminotransfer ALT/SGPT 56 U/L (<=46); Albumin, Serum 4.5 g/dL (3.4-4.8); Alkaline Phosphatase 68 U/L (40-129); Anion Gap 13 (5-15); BUN 13 mg/dL (4-19); BUN/Creat Ratio 13.4 RATIO (10-20); Calcium,Total 10.3 mg/dL (7.6-11.0); Carbon Dioxide 23.7 mmol/L (21.0-32.0); Chloride 106 mmol/L (98-108); Cholesterol 159 mg/dL (<=200); Free T3 3.0 pg/mL (2.18-3.98); Globulin 3.0 g/dL (2.2-4.2); Glucose 147 mg/dL (70-99); Low Density Lipoprotein Calc. 75 mg/dL; Potassium 4.2 mmol/L (3.3-5.1); Triglycerides 253 mg/dL; Very Low Density Lipoprotein 51 mg/dL (5-40); cholesterol:hdl ratio screen 3.69
== END | disposition home or self-care (01) ==
PROVIDERS: PCP Family Medicine; Referring Provider Family Medicine; Visit Provider Family Medicine
DX: E03.9 Hypothyroidism, unspecified (principal); E11.65 Type 2 diabetes mellitus with hyperglycemia; E78.5 Hyperlipidemia, unspecified; Z51.81 Encounter for therapeutic drug level monitoring
CPT/HCPCS: 36415; 80053; 80061; 84439; 84443; 84481